=== PATIENT | male | born 1995 | race Caucasian/White ===

== ENCOUNTER 2025-01-20 00:51 | Emergency (ER) | payer OTHER, SELFPAY ==
[2025-01-20 01:01] VITALS: BP 150/90
[2025-01-20 02:25] VITALS: BMI 39.5
[2025-01-20 02:30] VITALS: BP 118/77
[2025-01-20 03:00] VITALS: BP 126/76
[2025-01-20 04:00] VITALS: BP 114/74
[2025-01-20 05:00] VITALS: BP 97/50
--- NOTE | 2025-01-20 05:35 | ED.GENMED ---
History of Present Illness
General
Chief Complaint: Back Pain
Source: patient
Exam Limitations: none
Time Seen by Provider: 01/20/25 04:39
Nursing documentation reviewed up to this point in time: agreed with
History of Present Illness
History of Present Illness:
Note:
CHIEF COMPLAINT(S)
Low back pain radiating to the right leg and groin.
HISTORY OF PRESENT ILLNESS
This is a 29 year-old male with no past medical history who presents to the emergency department today with concerns of right lower back pain and buttock pain for the past two days. Patient reports that the pain radiates into the back of his thigh
and into his groin. He denies any genital symptoms. He denies any testicular pain. He denies any genital paresthesias. Patient reports that the pain is sharp, but he also has associated numbness and tingling. He denies any difficulty ambulating, he
denies any weakness. Denies any urinary fecal incontinence. He has had this in the past and it has resolved on its own. He has never seen ortho or done PT. Patient reports ibuprofen and Tylenol do you take the edge off. He denies any trauma to the
area, he has recent falls. He denies any fevers or chills, nausea or vomiting.
PHYSICAL EXAM
General: Patient is well appearing and in no acute distress; non-toxic
Skin: Warm and dry, no rashes or lesions
Head: Normocephalic, atraumatic
Eyes: Sclera non-icteric. EOMs intact.
Cardiac: Regular rate and rhythm, no murmurs
Peripheral Vascular: No lower extremity swelling or edema
Pulm: Normal respiratory effort, no wheezes, rales, or rhonchi
Abdomen: No abdominal tenderness to palpation
MSK: No midline spinal tenderness. Tenderness to palpation over right gluteus avni.
Neuro: CN II-XII intact, no focal neurologic deficits. 5/5 strength in b/l lower extremities, normal gait.
Psychiatric: Appropriate mood and affect.
SOCIAL DETERMINANTS AFFECTING HEALTH
The patient reports that his work requires significant driving, which exacerbates his pain.
PLAN
The patient is advised on oral steroid regimen to manage nerve root irritation suspected to be causing the pain. Muscle relaxants may also be provided. An MRI is suggested for future assessment. Prescriptions will be sent to the patient�s pharmacy.
DIFFERENTIAL DIAGNOSIS
The Differential Diagnosis includes, in no particular order and is not limited to:
1. Sciatica
2. Herniated lumbar disc
3. Nerve root compression
4. Piriformis syndrome
5. Sacroiliac joint dysfunction
6. Lumbosacral radiculopathy
7. Spinal stenosis
8. Muscle strain
9. Kidney stone (less likely given the absence of hematuria)
10. Infection (less likely given the absence of fever/chills)
REVIEW OF PRIOR RECORDS
Reviewed ER note from 08/08/11 patient seen for ear infection was discharged
DISPOSITION
This is a 29 year-old male with no past medical history who presents to the emergency department today with concerns of right lower back pain and buttock pain for the past two days. Patient reports that the pain radiates into the back of his thigh
and into his groin. He has no cauda equina symptoms. He has no abdominal pain or testicular pain. Suspect sciatica. Patient given prescription for short burst of steroids. Pt stable for discharge.
Past History
Past History
ED Past Medical History: Negative IDDM
ED Past Surgical History: Negative Cardiac
Social History
Tobacco: Non-smoker
Alcohol: None
Drug: None
Personal: Single
Living: with family
Family History
Family History: Hypertension
Review of Systems
Review of Systems
All Other Systems: ROS reviewed and negative except as documented in HPI and ROS
Phy Exam
Physical Exam
Physical Exam:
see hpi
Course
Orders/Labs/Results
Orders:
Orders
01/20/25 05:44
Cyclobenzaprine HCl [Flexeril] 10 mg PO NOW STA
Ketorolac [Toradol] 30 mg IM NOW STA
Vital Signs
Initial and Last Documented VS:
Initial Vital Signs
Temp Pulse Resp BP Pulse Ox
98.3 F 84 20 150/90 100
01/20/25 01:01 01/20/25 01:01 01/20/25 01:01 01/20/25 01:01 01/20/25 01:01
Last Documented Vital Signs
Temp Pulse Resp BP Pulse Ox
98.3 F 54 18 97/50 98
01/20/25 01:01 01/20/25 06:24 01/20/25 06:24 01/20/25 05:00 01/20/25 06:24
*Pulse Oximetry
SaO2: 97
Oxygen Mode of Delivery: Room air
*Critical Care Note
Total Time (30-74mins, 75-104mins- exclusive of procedures): Not Applicable
ED Attending Note
-
Portions of this chart may have been created with voice recognition software.� Occasional wrong word or��sound alike� substitutions may have occurred due to the inherent limitations of voice recognition software.
Discharge Plan
Departure
Patient Disposition: Home (Routine Discharge)
Date of Disposition: 01/20/25
Time of Disposition: 06:19
Patient with high blood pressure during this ER visit?: Yes
Condition: Good
Discharge Problem:
Sciatica of right side
Instructions: Low Back Pain (DC), Radiculopathy (DC), BLOOD PRESSURE
Prescriptions:
New
prednisone 20 mg tablet
40 mg PO DAILY 5 Days Qty: 10 0RF
Referrals:
Danny Petersen MD [Family Provider, Family Practice]
Coy Chatterjee MD [Active, Orthopedics]
Activity Restrictions/Additional Instructions:
Prednisone has been sent to your pharmacy. Please take 40 mg once daily for 5 days. Please do not take ibuprofen or NSAIDs with this medication.
You can take Tylenol while on steroids as well.
I recommend following up with orthopedics. Please call attached number to schedule an appointment.
PLEASE RETURN EMERGENCY DEPARTMENT SHOULD YOU DEVELOP URINARY OR FECAL INCONTINENCE, INABILITY TO AMBULATE, WEAKNESS, DIZZINESS, LIGHTHEADEDNESS, OR ANY OTHER SIGNS OR SYMPTOMS WORRISOME TO YOU.
Interventions
Interventions:
*Risk Screen - Suicide Last Done: 01/20/25 01:01
*General Assessment Last Done: 01/20/25 02:25
*Neglect/Abuse Screening Last Done: 01/20/25 01:01
*ED- Fall Risk Assessment Last Done: 01/20/25 02:25
*ED COVID-19 Vaccine History Last Done: 01/20/25 06:24
*Nursing Disposition Last Done: 01/20/25 06:24
ED-Musculoskeletal Assessment Last Done: 01/20/25 02:37
Discharge Date and Time
Discharge Date/Time: 01/20/25 06:27
Print Language: LATVIAN
[2025-01-20] MEDS: FLEXERIL 10 MG PO (05:48)
[2025-01-20] MEDS: TORADOL 30 MG IM (05:48)
== END 2025-01-20 06:27 | disposition home or self-care (01) ==
LOC: EMR 00:51
PROVIDERS: EMERGENCY PHYSICIAN Emergency Medicine; FAMILY PHYSICIAN Family Medicine
DX: M54.41 Lumbago with sciatica, right side (principal); Z82.49 Family history of ischemic heart disease and other diseases of the circulatory system
CPT/HCPCS: 99282